=== PATIENT | female | born 1970 | race American Indian/Alaskan Native ===

== ENCOUNTER 2019-08-01 15:32 | Emergency (ER) | payer BC, OTHER ==
--- NOTE | 2019-08-01 16:19 | EDM.PDOC ---
ED [facility] GENERAL MEDICAL PROBLEM - General Chief Complaint: Lower Extremity Injury/Pain Stated Complaint: RT ANKLE INJURY Time Seen by Provider: 08/01/19 15:48 Source of Information: Reports: Patient History Limitations: Reports: No Limitations - History of Present Illness INITIAL COMMENTS - FREE TEXT/NARRATIVE: Patient is a 49-year-old female who presents with complaints of right ankle pain and swelling. Patient states she was "just walking up the stairs "when she heard a "pop ". Patient did not fall. She states after that she was able to walk to the bathroom. While she was in the bathroom her "ankle started swelling and looked like it turned sideways "and she fell to the floor. Patient has a small abrasion to her medial malleolus which she states she thinks she got by scraping her ankle on a metal door frame. She has no history of previous injury to this leg. Right Ankle Pain Score (Numeric/FACES): 10 - Related Data Allergies Allergy/AdvReac Type Severity Reaction Status Date / Time No Known Allergies Allergy Verified 08/01/19 15:46 Home Meds: Home Meds Acetaminophen/HYDROcodone [[place] 325-5 MG] 1 - 2 tab PO Q4H PRN #20 tablet 07/31 [Rx] Review of Systems - Review of Systems Review Of Systems: Comprehensive ROS is negative, except as noted in HPI. ED EXAM, GENERAL - Physical Exam Exam: See Below Exam Limited By: No Limitations General Appearance: Alert, WD/WN, Mild Distress Respiratory/Chest: No Respiratory Distress, Lungs Clear, Normal Breath Sounds, No Accessory Muscle Use, Chest Non-Tender Cardiovascular: Normal Peripheral Pulses, Regular Rate, Rhythm, No Edema, No Gallop, No JVD, No Murmur, No Rub Extremities: Other (Pain and swelling to the right medial malleolar area. 1 cm abrasion to the medial malleolus. Appears to be somewhat old. There is ecchymosis present to the ankle.) Neurological: Alert, Oriented, CN II-XII Intact, Normal Cognition, Normal Gait, Normal Reflexes, No Motor/Sensory Deficits Psychiatric: Normal Affect, Normal Mood Skin Exam: Warm, Dry, Intact, Normal Color, No Rash Course - Vital Signs Last Recorded V/S: Last Vital Signs Temp 97.8 F 08/01/19 15:47 Pulse 81 03/07/20 15:47 Resp 17 08/01/19 15:47 BP 145/101 H 08/01/19 15:47 Pulse Ox 98 08/01/19 15:47 - Orders/Labs/Meds Meds: Medications Discontinued Medications Generic Name Dose Route Start Last Admin Trade Name Lizz PRN Reason Stop Dose Admin Hydromorphone HCl 1 mg 08/01/19 16:43 08/01/19 16:57 Dilaudid IM 08/01/19 16:44 1 mg ONETIME ONE Administration - Re-Assessments/Exams Free Text/Narrative Re-Assessment/Exam: 08/01/19 17:48 X-ray of the right ankle shows a displaced distal fibula fracture with widening of the ankle mortise. Patient was medicated with Dilaudid IM. After this a short leg splint was applied her right lower extremity. Patient tolerated the procedure well. CMS was intact distal to the splint after application. We will discharge her with a walker as she does not feel that she would be able to use crutches as her left knee has arthritis. Patient will be discharged home with a prescription for [place] for pain and instructions to follow-up with orthopedics. Discharge instructions as documented. Departure - Departure Time of Disposition: 17:50 Disposition: Home, Self-Care 01 Condition: Fair Clinical Impression: Fracture of fibula - Discharge Information *PRESCRIPTION DRUG MONITORING PROGRAM REVIEWED*: Yes *COPY OF PRESCRIPTION DRUG MONITORING REPORT IN PATIENT KHRIS: No Prescriptions: Acetaminophen/HYDROcodone [[place] 325-5 MG] 1 - 2 tab PO Q4H PRN #20 tablet PRN Reason: Pain Instructions: Fibular Fracture Rehab-SportsMed Referrals: PCP,None [Primary Care Provider] - Jack Delaney MD [Physician] - Forms: ED Department Discharge Additional Instructions: You were seen in the emergency department today for pain and swelling to your right ankle. X-ray revealed that you have a fracture of your distal fibula. A splint has been applied to your right lower leg. This must remain intact until removed by orthopedics. You should be nonweightbearing on this extremity. Use the walker that you have been provided for mobility. Recommend that you use Tylenol and ibuprofen as needed for pain. For pain not relieved by these measures, a prescription for [place] has been sent to [facility]. Take this medication as prescribed. Do not drive or operate heavy machinery after taking this medication as it can be sedating. Also do not drink alcohol after taking this medication. You may ice through the splint over the area of injury. Also recommend that you elevate the extremity when at rest to reduce swelling. Recommend that you call Dr. Delaney's office first thing Saturday to schedule an appointment. If you should experience any new or worsening symptoms of concern, please do not hesitate to return to the emergency department. Sepsis Event Note - Evaluation Sepsis Screening Result: No Definite Risk - Focused Exam Date Exam was Performed: 08/03/19 Time Exam was Performed: 20:27
[2019-08-01] MEDS ORDERED: HYDROmorphone 0.5 MG/0.5 ML Syringe IM ONE (16:43)
--- NOTE | 2019-08-02 13:52 | CR ---
Right ankle: Four views of the right ankle were obtained. Displaced and mildly comminuted distal fibular fracture is seen through the lateral malleolus. Ankle mortise is unstable with medial shifting of the tibia. Soft tissue swelling is noted. Large plantar spur is seen. Small spur is noted at the attachment of the Achilles tendon to the calcaneus. Impression: 1. Displaced lateral malleolus fracture causing unstable ankle mortise. 2. Other findings as noted above. Diagnostic code #3 This report was dictated in [place] Standard Time
== END 2019-08-01 18:12 | disposition home or self-care (01) ==
LOC: JD.ED 15:32
DX: S82.831A Other fracture of upper and lower end of right fibula, initial encounter for closed fracture (principal); W19.XXXA Unspecified fall, initial encounter
CPT/HCPCS: 29515; 73610; 96372; 99283; J1170

== ENCOUNTER 2019-08-13 07:35 | Day surgery (SDC) | payer BC, OTHER ==
[~2019-08-13 07:35] MED LIST: Lactated Ringers 1,000 ML IV SCH; Lidocaine 1%/Sod Bicarbonate in NS 8.4% 1 ML Syringe IDERM PRN; Sodium Chloride 0.9% 10 ML Syringe FLUSH PRN
[2019-08-13] MEDS ORDERED: Albuterol 0.083% 2.5 MG/3 ML Neb Soln NEB SCH (08:00)
--- NOTE | 2019-08-13 08:40 | PCM.PREANE ---
Preanesthetic Assessment - Anesthesia/Transfusion/Family Hx Anesthesia History: Prior Anesthesia Without Reaction Family History of Anesthesia Reaction: No Transfusion History: No Prior Transfusion(s) - Review of Systems General: No Symptoms Pulmonary: No Symptoms Cardiovascular: Dyspnea on Exertion Gastrointestinal: No Symptoms Neurological: Difficulty Walking, Gait Disturbance Other: Reports: None - Physical Assessment NPO Status Date: 08/12/19 NPO Status Time: 21:00 Vital Signs: Last Vital Signs Temp 36.8 C 08/13/19 07:45 Pulse 67 08/13/19 07:45 Resp 20 08/13/19 07:45 BP 174/105 H 08/13/19 08:30 Pulse Ox 98 08/13/19 08:16 Height: 1.78 m Weight: 130.181 kg ASA Class: 2 Mental Status: Alert & Oriented x3 Dentition: Reports: Dentures (TOP), Missing Tooth/Teeth, Caries Thyro-Mental Finger Breadths: 2 Mouth Opening Finger Breadths: 2 ROM/Head Extension: Full Lungs: Clear to Auscultation, Normal Respiratory Effort Cardiovascular: Regular Rate, Regular Rhythm - Lab Values: Laboratory Last Values WBC 9.11 K/mm3 (3.98-10.04) 08/13/19 08:00 RBC 5.05 M/mm3 (3.98-5.22) 08/13/19 08:00 Hgb 15.8 gm/dl (11.2-15.7) H 08/13/19 08:00 Hct 47.4 % (34.1-44.9) H 08/13/19 08:00 MCV 93.9 fl (79.4-94.8) 08/13/19 08:00 MCH 31.3 pg (25.6-32.2) 08/13/19 08:00 MCHC 33.3 g/dl (32.2-35.5) 08/13/19 08:00 RDW Std Deviation 49.7 fL (36.4-46.3) H 08/13/19 08:00 Plt Count 216 K/mm3 (182-369) 08/13/19 08:00 MPV 10.4 fl (9.4-12.3) 08/13/19 08:00 Neut % (Auto) 62.8 % (34.0-71.1) 08/13/19 08:00 Lymph % (Auto) 26.2 % (19.3-51.7) 08/13/19 08:00 Green % (Auto) 7.4 % (4.7-12.5) 08/13/19 08:00 Eos % (Auto) 2.9 (0.7-5.8) 08/13/19 08:00 Baso % (Auto) 0.5 % (0.1-1.2) 08/13/19 08:00 Neut # (Auto) 5.72 K/mm3 (1.56-6.13) 08/13/19 08:00 Lymph # (Auto) 2.39 K/mm3 (1.18-3.74) 08/13/19 08:00 Green # (Auto) 0.67 K/mm3 (0.24-0.36) H 08/13/19 08:00 Eos # (Auto) 0.26 K/mm3 (0.04-0.36) 08/13/19 08:00 Baso # (Auto) 0.05 K/mm3 (0.01-0.08) 08/13/19 08:00 MRSA (PCR) Negative 08/11/19 10:35 - Allergies Allergies/Adverse Reactions: Allergies Allergy/AdvReac Type Severity Reaction Status Date / Time No Known Allergies Allergy Verified 08/13/19 08:32 - Blood Blood Available: No Product(s) Available: None - Anesthesia Plan Pre-Op Medication Ordered: None - Acknowledgements Anesthesia Type Planned: Spinal Pt an Appropriate Candidate for the Planned Anesthesia: Yes Alternatives and Risks of Anesthesia Discussed w Pt/Guardian: Yes Pt/Guardian Understands and Agrees with Anesthesia Plan: Yes PreAnesthesia Questionnaire - Past Health History Medical/Surgical History: Denies Medical/Surgical History HEENT History: Reports: Other (See Below) Other HEENT History: HAS DENTURES [employer] History: Reports: Musculoskeletal History: Reports: Osteoarthritis Endocrine/Metabolic History: Reports: Obesity/BMI 30+ - Past Surgical History Female Surgical History: Reports: Section Musculoskeletal Surgical History: Reports: None - SUBSTANCE USE Smoking Status *Q: Current Every Day Smoker Tobacco Use Within Last Twelve Months: Cigarettes Second Hand Smoke Exposure: Yes Days Per Week of Alcohol Use: 1 Number of Drinks Per Day: 0 Total Drinks Per Week: 0 Recreational Drug Use History: No - HOME MEDS Home Medications: Home Meds Acetaminophen/HYDROcodone [[place] 325-5 MG] 1 tab PO Q4H PRN 08/13/19 [History] Apixaban [Eliquis] 2.5 mg PO BID #60 tablet 08/13/19 [Rx] oxyCODONE 5 - 10 mg PO Q6H PRN #40 tab 08/13/19 [Rx] - CURRENT (IN HOUSE) MEDS Current Meds: Current Medications Albuterol (Proventil Neb Soln) 2.5 mg NEB ONETIME ROWAN Stop: 08/13/19 18:00 Last Admin: 08/13/19 08:16 Dose: 2.5 mg Lactated Ringer's (Ringers, Lactated) 1,000 mls @ 125 mls/hr IV ASDIRECTED ROWAN Stop: 08/13/19 23:00 Last Admin: 08/13/19 08:05 Dose: 125 mls/hr Lidocaine/Sodium Bicarbonate (Buffered Lidocaine 1% In Ns 8.4%) 0.25 ml IDERM ONETIME PRN PRN Reason: Prior to IV Start Stop: 08/13/19 18:00 Last Admin: 08/13/19 08:05 Dose: 0.25 ml Sodium Chloride (Saline Flush) 10 ml FLUSH ASDIRECTED PRN PRN Reason: Keep Vein Open Stop: 08/13/19 18:00 Discontinued Medications Bupivacaine HCl (Sensorcaine-Mpf 0.25%) Confirm Administered Dose 20 ml .ROUTE .STK-MED ONE Stop: 08/13/19 08:03
[2019-08-13] MEDS ORDERED: fentaNYL 250 MCG/5 ML SDV ONE ×2 (08:56→09:58)
[2019-08-13] MEDS ORDERED: Propofol 200 MG/20 ML SDV ONE (08:56)
[2019-08-13] MEDS ORDERED: Ondansetron 4 MG/2 ML SDV ONE (08:56)
[2019-08-13] MEDS ORDERED: Midazolam 1 MG/ML 2 ML SDV ONE (08:56)
[2019-08-13] MEDS ORDERED: Ketorolac 30 MG/ML SDV ONE (08:57)
[2019-08-13] MEDS ORDERED: ceFAZolin 1 GM Vial ONE (08:57)
[2019-08-13] MEDS ORDERED: Lidocaine 1% 4 ML ONE (08:57)
[2019-08-13] MEDS ORDERED: Rocuronium 50 MG/5 ML Vial ONE (09:18)
[2019-08-13] MEDS ORDERED: Labetalol 100 MG/20 ML MDV ONE (09:24)
[2019-08-13] MEDS ORDERED: HYDROmorphone 0.5 MG/0.5 ML Syringe ONE ×2 (09:39)
[2019-08-13] MEDS: Bupivacaine 0.25% 10 ML SDV ONE ×4 (10:08→10:39)
[2019-08-13] MEDS: Triamcinolone Acetonide 40 MG/ML 1 ML MDV ONE ×2 (10:09→10:39)
[2019-08-13] MEDS ORDERED: fentaNYL 100 MCG/2 ML SDV ONE (10:49)
[2019-08-13] MEDS ORDERED: HYDROmorphone 0.5 MG/0.5 ML Syringe IVPUSH PRN (10:58)
[2019-08-13] MEDS ORDERED: fentaNYL 100 MCG/2 ML SDV IVPUSH PRN (10:58)
--- NOTE | 2019-08-13 11:00 | PCM.POSTAN ---
POST ANESTHESIA ASSESSMENT - MENTAL STATUS Mental Status: Alert, Oriented - VITAL SIGNS Vital Signs: Last Vital Signs Temp 36.8 C 08/13/19 07:45 Pulse 67 08/13/19 07:45 Resp 20 08/13/19 07:45 BP 174/105 H 08/13/19 08:30 Pulse Ox 98 08/13/19 08:16 - RESPIRATORY Respiratory Status: Respiratory Rate WNL, Airway Patent, O2 Saturation Stable - CARDIOVASCULAR CV Status: Pulse Rate WNL, Blood Pressure Stable - GASTROINTESTINAL GI Status: No Symptoms - PAIN Pain Score: 2 - POST OP HYDRATION Hydration Status: Adequate & Stable - OBSERVATIONS Free Text/Narrative:: no anesthesia complications noted
[2019-08-13] MEDS ORDERED: oxyCODONE 5 MG Tab PO PRN (11:09)
--- NOTE | 2019-08-13 11:19 | CR ---
Right ankle: Eight fluoroscopic spot views were obtained of the right ankle utilizing C-arm device. Study shows reduction of previous lateral malleolar fracture. Ankle mortise appears symmetric. Plate and screws are in place. Two screws also affix the fibula to the tibia. Fluoroscopy time given as 34.7 seconds. Impression: 1. Procedural study as described above. Diagnostic code #2 This report was dictated in MDT
--- NOTE | 2019-08-13 11:57 | PCM48HPAN ---
Post Anesthesia Note - EVALUATION WITHIN 48HRS OF ANESTHETIC Vital Signs in Normal Range: Yes Patient Participated in Evaluation: Yes Respiratory Function Stable: Yes Airway Patent: Yes Cardiovascular Function Stable: Yes Hydration Status Stable: Yes Pain Control Satisfactory: Yes Nausea and Vomiting Control Satisfactory: Yes Mental Status Recovered: Yes Vital Signs: Last Vital Signs Temp 36.6 C 08/13/19 11:45 Pulse 81 08/13/19 11:45 Resp 15 08/13/19 11:45 BP 167/111 H 08/13/19 11:45 Pulse Ox 96 08/13/19 11:45 - COMMENTS/OBSERVATIONS Free Text/Narrative:: no anesthesia complications noted
--- NOTE | 2019-08-17 13:01 | PCM.OPNOTE ---
- General Post-Op/Procedure Note Date of Surgery/Procedure: 08/13/19 Operative Procedure(s): open reduction internal fixation of right lateral malleolus and syndesmosis with left knee corticosteroid injection Pre Op Diagnosis: right ankle lateral malleolus with syndesmosis disruption and left knee osteoarthrosis Post-Op Diagnosis: Same Anesthesia Technique: General LMA, Local Primary Surgeon: Jack Delaney Anesthesia Provider: Iglesia Montero Knife Sharpener: Angela Gupta in mLs: 5 Complications: None Condition: Good
--- NOTE | 2019-08-17 14:04 | OR ---
DATE OF OPERATION: 08/13/2019 SURGEON: Jack Delaney MD OPERATION PERFORMED: Open reduction and internal fixation of right lateral malleolus and syndesmosis with left knee corticosteroid injection. PREOPERATIVE DIAGNOSIS: Right ankle lateral malleolus fracture with syndesmotic disruption and left knee osteoarthrosis. POSTOPERATIVE DIAGNOSIS: Right ankle lateral malleolus fracture with syndesmotic disruption and left knee osteoarthrosis. ANESTHESIA: General LMA with local. ANESTHESIA PROVIDER: Iglesia Montero CRNA. ESTIMATED BLOOD LOSS: 5 mL. COMPLICATIONS: None. CONDITION: Stable. DESCRIPTION OF PROCEDURE: The patient was identified in the preop holding area. Proper site was marked and identified by the surgeon. The patient was then taken back to the operating theater where after adequate anesthesia, the patient's right lower extremity had a nonsterile tourniquet applied and then sterilely prepped and draped in the usual sterile fashion. OR time-out was performed. The patient received 2 g IV Ancef. Right lower extremity was then exsanguinated. Tourniquet was insufflated to 250 mmHg. Standard lateral incision was made over the fibula. This was taken down to the fracture site, which was identified. It was curetted and rongeured of all fracture hematoma and soft tissue. [id number] reduction clamp was then used for anatomic reduction on C-arm fluoroscopy, which was utilized throughout the procedure. A 7-hole [place] distal fibular locking plate was then positioned under direct fluoroscopy and direct visualization with good bony contact. Proximally and distally, it was secured to the bone using nonlocking cortical screws. Once it was found to be in adequate position, then 3 more locking screws were placed distally and then 3 more nonlocking screws and locking screws were placed proximally to the fracture site. The clamp was then removed and was found to have stable anatomic reduction of the lateral malleolus fracture. The syndesmosis was then identified to be widened. A [id number] reduction clamp with a small incision made on the medial side was then utilized for reduction of the syndesmosis. Two tricortical syndesmotic screws were then placed through the plate into the tibia and it was found to have still stable ankle mortise reduction on C-arm fluoroscopy under mortise view as well as stress view of the mortise. Adequate saline was then irrigated through the wound. 2-0 Vicryl was used subcutaneously as well as for deep closure and jeanne were used for closure of the skin. The patient tolerated that procedure well. After that was completed, then 2 mL of 40 mg Kenalog and 4 mL 0.25% Marcaine were injected to the left knee. The patient tolerated all the procedures well and was sent to PACU in stable condition. MMODAL /[id number]
== END 2019-08-13 13:10 | disposition home or self-care (01) ==
LOC: JD.SDS 07:35
PROVIDERS: ATTEND Orthopaedic Surgery
DX: S82.841A Displaced bimalleolar fracture of right lower leg, initial encounter for closed fracture (principal); S93.431A Sprain of tibiofibular ligament of right ankle, initial encounter; M17.12 Unilateral primary osteoarthritis, left knee; F17.210 Nicotine dependence, cigarettes, uncomplicated; Z79.899 Other long term (current) drug therapy; X58.XXXA Exposure to other specified factors, initial encounter
CPT/HCPCS: 20610; 27792; 27829; 36415; 76000; 80048; 85025; 87641; 94640; A9270; C1713; C1776; J0690; J1170; J1885; J2001; J2250; J2405; J2704; J3010; J3301; J3490; J7120; 01480